=== PATIENT | female | born 1985 | race Two or more races ===

== ENCOUNTER → 2024-03-14 09:47 | Outpatient (REF) | payer BC, SELFPAY | LOC: HWRAD 09:47 | PROVIDERS: ATTENDING PHYSICIAN Otolaryngology; FAMILY PHYSICIAN Family Medicine | DX: J34.2 Deviated nasal septum (principal); J32.0 Chronic maxillary sinusitis; R51.9 Headache, unspecified | CPT/HCPCS: 70486 ==

== ENCOUNTER 2024-05-19 06:09 | Day surgery (SDC) | payer BC, SELFPAY ==
[2024-05-19] VITALS (8 sets, daily range): BP systolic 111–130; BP diastolic 60–66; BMI 20.3
[2024-05-19] MEDS: NORMOSOL-R/PLASMALYTE-A 1000 IV (07:15)
== END 2024-05-19 10:50 | disposition home or self-care (01) ==
LOC: SDS 06:09
PROVIDERS: ATTENDING PHYSICIAN Otolaryngology
DX: J32.0 Chronic maxillary sinusitis (principal); J34.2 Deviated nasal septum; J45.909 Unspecified asthma, uncomplicated; J34.3 Hypertrophy of nasal turbinates; J34.89 Other specified disorders of nose and nasal sinuses
CPT/HCPCS: 31267; 30140; 30520; 88304; 88311; 88312